=== PATIENT | male | born 1940 | race Caucasian/White ===

== ENCOUNTER 2017-06-01 10:37 | Outpatient (CLI) | payer MEDICARE, OTHER ==
[2017-06-01] VITALS (10 sets, daily range): BP systolic 122–147; BP diastolic 81–98
[~2017-06-01] VITALS: Ht 188 cm; Wt 100.7 kg
[2017-06-01] MEDS ORDERED: CATHETER FLUSH 10 ML SYR IV PRN (11:15)
[2017-06-01] MEDS ORDERED: meTOprolol 5 MG/5 ML (LOPRESSOR) VIAL ONE (13:09)
[2017-06-01] MEDS ORDERED: meTOprolol 5 MG/5 ML (LOPRESSOR) VIAL IV ONE ×2 (14:30→18:30)
[2017-06-01] MEDS ORDERED: NS IV 1000 ML 1,000 ML ONE (14:31)
[2017-06-01] MEDS ORDERED: HEParin (CATH LAB) 2,000 ML IV ONE (14:31)
[2017-06-01] MEDS ORDERED: NS IV 1000 ML 1,000 ML IV SCH ×2 (14:48→16:05)
--- NOTE | 2017-06-01 15:00 | Cardiac Procedure Note-CS/ASA ---
Pre-Procedure Note Pre-Op Procedure Note H&P Reviewed The H&P was reviewed, patient examined and no changes noted. Date H&P Reviewed: Jun 01, 2017 Time H&P Reviewed: 14:59 Conscious Sedation Pre-Proced Time Reviewed: 14:59 ASA Class: 3 Airway Mallampati Classification: ([place] appropriate class) I. II. III, IV Lungs Heart ASA score ASA 1: a normal healthy patient ASA 2: a patient with a mild systemic disease (mid diabetes, controlled hypertension, obesity x ASA 3: a patient with a severe systemic disease that limits activity (angina , COPD, prior Myocardial infarction) ASA 4: a patient with an incapacitating disease that is a constant threat to life (CHF, renal failure) ASA 5: a moribund patient not expected to survive 24 hrs. (ruptured aneurysm) ASA 6: a declared brain patient whose organs are being harvested. For emergent operations, add the letter E after the classification Grade 3 Sedation Plan: Analgesia, Amnesia, Plan communicated to team members, Discussed options with patient/fam, Discussed risks with patient/fam Note The patient is an appropriate candidate to undergo the planned procedure, sedation, and anesthesia. The patient immediately re-assessed prior to indication. ENZO SANDHU MD Jun 01, 2017 15:00
[2017-06-01 15:01] LABS: RED BLOOD COUNT 5.17 10^6/uL (4.35-5.85); RED CELL DISTRIBUTION WIDTH 14.1 % (10.0-14.5); WHITE BLOOD COUNT 8.3 10^3/uL (4.3-11.0)
--- NOTE | 2017-06-01 15:08 | Diagnostic Imaging Report ---
Portable upright radiograph of the chest. INDICATION: Abnormal stress test. FINDINGS: The lungs are clear. The heart size is at the upper limits of normal. No effusion or pneumothorax. Mediastinum and beni appear unremarkable. IMPRESSION: Slightly prominent cardiac size. Dictated by: Dictated on workstation # [id number]
[2017-06-01] MEDS ORDERED: METO-387 PO (15:14)
[2017-06-01] MEDS ORDERED: PRED5DRO17 OS (15:14)
[2017-06-01] MEDS ORDERED: OFLO5DRO3 OS (15:14)
[2017-06-01 15:16] LABS: ALBUMIN 3.9 GM/DL (3.2-4.5); BILIRUBIN,TOTAL 0.9 MG/DL (0.1-1.0); CALCIUM 9.4 MG/DL (8.5-10.1); CREATININE SERUM 1.28 MG/DL (0.60-1.30)
[2017-06-01] MEDS ORDERED: CETI10TA20 PO (15:16)
[2017-06-01] MEDS ORDERED: BETA1TAB15 PO (15:16)
[2017-06-01] MEDS ORDERED: OMG1KC PO (15:16)
[2017-06-01] MEDS ORDERED: MULT-35 PO (15:16)
[2017-06-01] MEDS ORDERED: MIDAZOLAM 5 MG/5 ML (VERSED) VIAL ONE (15:25)
[2017-06-01] MEDS ORDERED: fentaNYL INJECTION 100 MCG/2 ML AMP ONE (15:25)
[2017-06-01 16:07] LABS: PROTHROMBIN TIME PATIENT 13.1 SEC (12.2-14.7)
--- NOTE | 2017-06-01 16:07 | Discharge Inst-Post CATH ---
Discharge Inst-CATH Post Cardiac Cath D/C Inst Follow Up/Plan Appointment with Dr. Mar's office in 2-4 weeks CARDIAC CATH DISCHARGE INSTRUCTIONS *Hold Metformin for 48 hours post heart cath. ACTIVITY * Go Home directly and rest. * Limit activity of the leg (or wrist if it was used) for 7 days including aerobics, swimming, jogging, bicycling, etc. * Restrict stair-climbing for 7 days if possible, if not, climb up with your non -cath leg, then bring together on the same step. * Avoid lifting, pushing, pulling or excessive movement of the affected extremity for 7 days. * Customary sexual activity may be resumed after 2 days-use caution not to use a position that strains or causes pain to the affected extremity. * No driving for 24 hours. * NO SMOKING. * Avoid straining for bowel movements for 7 days. * Gentle walking on level ground is allowed. * Returning to work will depend on the type of procedure and the results. Your doctor will discuss this with you. CALL YOUR DOCTOR FOR ANY OF THE FOLLOWING: *If bleeding from the puncture site occurs- Apply gentle pressure to site with clean cloth and call your doctor or EMS. * If a knot or lump forms under the skin, increases in size, or causes pain. * If bruising appears to be worsening or moving further down your leg instead of disappearing. * Temperature above 101 F. CARE OF YOUR GROIN INCISION; * Bruising or purple discoloration of the skin near the puncture site is common. * You may shower only, no bathtub bathing for 5 days. Be careful to avoid slipping as your leg may feel stiff. * If a closure device was used on your femoral artery, please see the attached guide regarding care of the device and your leg. * REMOVE the dressing from your groin the next day after your procedure in the shower. CARE OF YOUR WRIST INCISION; * Bruising or purple discoloration of the skin near the puncture site is common. * You may shower. * DO NOT submerge wrist. * Remove dressing in 24 hours. ENZO MAR MD Jun 01, 2017 16:07
--- NOTE | 2017-06-01 16:12 | Cardiac Cath Report ---
Cardiac Cath Report Physician (s)/Vice President Of Recruiting (s) Physician ENZO SANDHU MD Pre-Procedure Diagnosis Pre-Procedure Diagnosis: coronary artery disease Post-Procedure Note Procedure Start Date: Jun 01, 2017 Procedure Start Time: 16:08 Name of Procedure: left heart catheterization Aortic arch angiogram Findings/Procedure Note PROCEDURE NOTE: After explaining the procedure to the patient, all pros and cons were explained, all questions were answered. The patient signed the consent and then she was placed on the cardiac catheterization laboratory. The patient was placed on the cardiac catheterization laboratory. Groin was prepped SL fashion local anesthesia was used. Sheath placed in the artery. James right and left catheter were used to access the coronary system. Pigtail was used to access the left ventricular cavity. Left ventriculogram was not done Aortic arch angiogram was done At the end of the procedure the sheath was removed. Closure device was used FINDINGS: Hemodynamics LV 128/16, end-diastolic pressure 16 Aorta 125/73 mean of 92 ANATOMY: Left Main is free of obstructive disease Left Anterior Descending is slightly tortuous with mild disease distally Left Circumflex is free of obstructive disease Right Coronory Artery is tortuous artery with slow flow due to small vessel disease but overall nonobstructive disease LV Gram was not done, pressure was measured Aorta aortic arch evaluation showed slightly prominent aortic arch, no dissection or aneurysm, origin of the great neck vessel is normal CONCLUSION: 1. Tortuous right coronary system with slow flow due to small vessel disease, nonobstructive disease 2. Mild disease in the LAD, nonobstructive disease 3. Slightly prominent aortic arch, no dissection or aneurysm, normal great neck vessels 4. Normal left ventricular end-diastolic pressure DISCUSSION AND RECOMMENDATION: mild coronary artery disease, medical therapy is recommended no intervention is warranted. Patient has multiple PVCs, intermittent wide complex rhythm, continue with beta henrik and increase the dose as tolerated Laboratory Tests Test 06/01/17 14:48 Range/Units White Blood Count 8.3 4.3-11.0 10^3/uL Red Blood Count 5.17 4.35-5.85 10^6/uL Hemoglobin 15.1 13.3-17.7 G/DL Hematocrit 45 40-54 % Mean Corpuscular Volume 88 80-99 FL Mean Corpuscular Hemoglobin 29 25-34 PG Mean Corpuscular Hemoglobin Concent 33 32-36 G/DL Red Cell Distribution Width 14.1 10.0-14.5 % Platelet Count 190 130-400 10^3/uL Mean Platelet Volume 10.0 7.4-10.4 FL Sodium Level 140 135-145 MMOL/L Potassium Level 4.0 3.6-5.0 MMOL/L Chloride Level 108 H 98-107 MMOL/L Carbon Dioxide Level 26 21-32 MMOL/L Anion Gap 6 5-14 MMOL/L Blood Urea Nitrogen 20 H 7-18 MG/DL Creatinine 1.28 0.60-1.30 MG/DL Estimat Glomerular Filtration Rate 55 BUN/Creatinine Ratio 16 Glucose Level 93 70-105 MG/DL Calcium Level 9.4 8.5-10.1 MG/DL Total Bilirubin 0.9 0.1-1.0 MG/DL Aspartate Amino Transf (AST/SGOT) 26 5-34 U/L Alanine Aminotransferase (ALT/SGPT) 28 0-55 U/L Alkaline Phosphatase 124 40-136 U/L Total Protein 7.0 6.4-8.2 GM/DL Albumin 3.9 3.2-4.5 GM/DL Anesthesia Type: Conscious Sedation Estimated blood loss (mL): 5 ml Contrast Amount: 51 ml Total Radiation Dose: 659 mGy Post-Procedure Diagnosis Post-operative diagnosis: Coronary artery disease Hypertension Prominent aortic arch Frequent premature ventricular contractions ENZO SANDHU MD Jun 01, 2017 16:11
[2017-06-01] MEDS ORDERED: PATIENT MAY USE OWN MEDS, ALL PO SCH (16:15)
[2017-06-01 16:18] LABS: CHOLESTEROL 191 MG/DL (< 200); DIRECT LDL 124 MG/DL (1-129); TRIGLYCERIDES 85 MG/DL (<150); VLDL CHOLESTEROL 17 MG/DL (5-40)
--- NOTE | 2017-06-02 09:14 | STRESS TEST ---
DATE OF SERVICE: 06/01/2017 EXERCISE MYOVIEW STRESS TEST REPORT SUMMARY: Baseline heart rate is 76. Baseline blood pressure is 154/76. Baseline EKG is sinus rhythm with no ischemic changes. In summary, the patient was injected with 10.99 mCi of technetium-99 Myoview and the resting images were obtained. Then, the patient started exercising with a baseline heart rate, blood pressure and EKG mentioned above. The patient was able to exercise for a total of 7 minutes 15 seconds on standard Melchor protocol. With peak exercise level, blood pressure was 181/89. EKG was showing minimal nondiagnostic changes. During recovery, the patient developed wide complex tachycardia with a rate of 113. Then, he had frequent PVCs and ventricular couplets, returned later in recovery to sinus rhythm with intermittent wide complex rhythm. At the end of the test, the patient was asymptomatic. The resting and stress images were reviewed and compared due to the short axis, horizontal long axis, and vertical long axis views. Review of the images showed reversible ischemia involving the mid to apical inferior wall, inferolateral wall and anterolateral wall. SSS is 10, SDS 10, TID value 1.22. On the gated images, the left ventricle appeared to be prominent with diffuse left ventricular hypokinesia, more pronounced at the inferior wall, inferolateral wall, anterolateral wall calculated ejection fraction of 46%. CONCLUSION: 1. Fair exercise tolerance, a total of 7 minutes 15 seconds on standard Melchor protocol, total of 8.7 METS achieving 91% of maximum expected heart rate. 2. Hypertensive response to exercise, returned to baseline during recovery. 3. Frequent PVCs, ventricular couplets and multiple episodes of wide complex rhythm with a heart rate of 110 to 115. 4. Transient ischemic dilatation with TID value 1.22. 5. Reversible ischemia involving the mid to apical inferior wall, inferolateral wall and anterolateral wall. 6. Normal left ventricular size with mild diffuse left ventricular hypokinesia, more pronounced at the inferior wall, inferolateral wall and anterolateral wall, calculated ejection fraction of 46%. Job ID: [id number] DocumentID: [id number] Dictated Date: 06/01/2017 15:20:30 Superintendent Maintenance Date: 06/01/2017 19:24:02 Dictated By: ENZO SANDHU MD
== END 2017-06-01 21:05 | disposition home or self-care (01) ==
LOC: CARD 10:37 → ICU 16:15 → CARD 21:05
PROVIDERS: ATTEND Internal Medicine Cardiovascular Disease
DX: R07.9 Chest pain, unspecified; R00.2 Palpitations
CPT/HCPCS: 36221; 36415; 71010; 78452; 80053; 80061; 85027; 85610; 85730; 87081; 93017; 93306; 93458

== ENCOUNTER 2019-03-03 17:55 | Emergency (ER) | payer MEDICARE ==
[~2019-03-03] VITALS: Ht 188 cm; Wt 100.7 kg
[~2019-03-03 17:55] MED LIST: BETA1TAB15 PO; CETI10TA20 PO; METO-387 PO; MULT-35 PO; OFLO5DRO3 OS; OMG1KC PO; PRED5DRO17 OS
[2019-03-03 18:29] LABS: BASOPHILS % (AUTO) 1 % (0-10); EOSINOPHILS % (AUTO) 4 % (0-10); HEMATOCRIT 47 % (40-54); HEMOGLOBIN 15.4 G/DL (13.3-17.7); LYMPHOCYTES % (AUTO) 24 % (12-44); MEAN CORPUSCULAR HEMOGLOBIN 30 PG (25-34); MEAN CORPUSCULAR HGB CONC 33 G/DL (32-36); MEAN CORPUSCULAR VOLUME 90 FL (80-99); MEAN PLATELET VOLUME 10.4 FL (7.4-10.4); MONOCYTES % (AUTO) 8 % (0-12); NEUTROPHILS # (AUTO) 5.2 X 10^3 (1.8-7.8); NEUTROPHILS % (AUTO) 63 % (42-75); PLATELET COUNT 221 10^3/uL (130-400); RED CELL DISTRIBUTION WIDTH 13.8 % (10.0-14.5); WHITE BLOOD COUNT 8.2 10^3/uL (4.3-11.0)
[2019-03-03 18:30] LABS: BASOPHILS # (AUTO) 0.1 10^3/uL (0.0-0.1); EOSINOPHILS # (AUTO) 0.3 10^3/uL (0.0-0.3); MONOCYTES # (AUTO) 0.7 X 10^3 (0.0-1.0)
[2019-03-03 18:36] LABS: PROTHROMBIN TIME PATIENT 13.5 SEC (12.2-14.7)
[2019-03-03 18:45] LABS: ALBUMIN 4.4 GM/DL (3.2-4.5); BILIRUBIN,TOTAL 0.7 MG/DL (0.1-1.0); CALCIUM 9.7 MG/DL (8.5-10.1); CREATININE SERUM 1.51 MG/DL (0.60-1.30); POTASSIUM 4.4 MMOL/L (3.6-5.0); TOTAL PROTEIN 7.3 GM/DL (6.4-8.2)
--- NOTE | 2019-03-03 19:23 | ED Chest Pain ---
General Chief Complaint: Chest Pain Stated Complaint: CHEST PAIN,LOW BP,JAW PAIN Nursing Triage Note: Patient c/o chest pain with bilateral jaw pain. Patient reports he was lifting heavy boxes in the heat when his heart started racing and the chest pain started. Patient reports that he had a report recorded a pulse rate of 191. Nursing Sepsis Screen: No Definite Risk Source: patient, police Exam Limitations: no limitations History of Present Illness Date Seen by Provider: Mar 03, 2019 Time Seen by Provider: 15:20 Initial Comments Patient is a 78-year-old male with history of paroxysmal atrial fibrillation who presents with palpitations and heart rate in the 190s and bilateral jaw pain. Symptoms lasted approximately 30-40 minutes and occurred while the patient was lifting heavy boxes. Heart rate is controlled on ED arrival the patient is normal sinus rhythm with a ventricular rate 90s. Pain is resolved. Patient denie s shortness of breath nausea sweats during exertion earlier in the day. States he has had 2-3 episodes of A. fib over the past several months but are usually related to heavy lifting and bending down. Reports an outpatient heart catheterization 2 years ago which did not show evidence of macrovascular disease. Patient follows with Dr. Mar and is prescribed metoprolol. However, patient took himself off metoprolol 3 months ago due to poor tolerance of side effects. Patient reports fatigue and loss of motivation. Patient denies past anginal pain with exertion other than times when he is in A. fib. He is not on anticoagulation medication but does take a daily baby aspirin. 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 NTG SL SPACE SYSTEMS OPERATIONS SUPERINTENDENT: No Allergies and Home Medications Allergies Coded Allergies: No Known Drug Allergies (Unverified , 06/01/17) Home Medications Cetirizine HCl 10 Mg Tablet, 10 MG PO DAILY, (Reported) Metoprolol Succinate 25 Mg Tab.er.24h, 25 MG PO DAILY, (Reported) Multivitamin 1 Each Tablet, 1 TAB PO DAILY, (Reported) Ofloxacin 5 Ml Drops, 1 DROP OS QID, (Reported) Richardson 3 Polyunsat Fatty Acids 1,000 Mg Cap, 1,000 MG PO DAILY, (Reported) Prednisolone Acetate 5 Ml Drops.susp, 1 DROP OS QID, (Reported) Vit A/Vit C/Vit E/Zinc/Copper 1 Each Tablet, 1 TAB PO DAILY, (Reported) Patient Home Medication List Home Medication List Reviewed: Yes Review of Systems Review of Systems Constitutional: no symptoms reported EENTM: No Symptoms Reported Respiratory: No Symptoms Reported Cardiovascular: See HPI Gastrointestinal: No Symptoms Reported Genitourinary: No Symptoms Reported Musculoskeletal: no symptoms reported Skin: no symptoms reported Psychiatric/Neurological: No Symptoms Reported Endocrine: No Symptoms Reported Hematologic/Lymphatic: No Symptoms Reported Past Lyfkgfd-Ffyece-Wdanoz Hx Past Med/Social Hx: Reviewed Nursing Past Med/Soc Hx Patient Social History Recent Foreign Travel: No Contact w/Someone Who Travel: No Recent Infectious Disease Expo: No Physical Exam Vital Signs Vital Signs - First Documented Capillary Refill : Less Than 3 Seconds Height, Weight, BMI Height: 6'2.00" Weight: 222lbs. 0.0oz. 100.402160be; 27.7 BMI Method:Stated General Appearance: No Apparent Distress, WD/WN HEENT: PERRL/EOMI, TMs Normal Neck: Normal Inspection, Non Tender, Supple Respiratory: Chest Non Tender, Lungs Clear Cardiovascular: Regular Rate, Rhythm, Extra Beats Gastrointestinal: Normal Bowel Sounds Extremity: Normal Capillary Refill, Normal Inspection, Normal Range of Motion Neurologic/Psychiatric: Alert, Normal Mood/Affect, other sales support worker II-XII Norm as Tested Skin: Normal Color, Warm/Dry Focused Exam Sepsis Stage: Ruled Out Progress/Results/Core Measures Results/Orders Lab Results Laboratory Tests Test 03/03/19 18:00 03/03/19 20:00 Range/Units White Blood Count 8.2 4.3-11.0 10^3/uL Red Blood Count 5.20 4.35-5.85 10^6/uL Hemoglobin 15.4 13.3-17.7 G/DL Hematocrit 47 40-54 % Mean Corpuscular Volume 90 80-99 FL Mean Corpuscular Hemoglobin 30 25-34 PG Mean Corpuscular Hemoglobin Concent 33 32-36 G/DL Red Cell Distribution Width 13.8 10.0-14.5 % Platelet Count 221 130-400 10^3/uL Mean Platelet Volume 10.4 7.4-10.4 FL Neutrophils (%) (Auto) 63 42-75 % Lymphocytes (%) (Auto) 24 12-44 % Monocytes (%) (Auto) 8 0-12 % Eosinophils (%) (Auto) 4 0-10 % Basophils (%) (Auto) 1 0-10 % Neutrophils # (Auto) 5.2 1.8-7.8 X 10^3 Lymphocytes # (Auto) 2.0 1.0-4.0 X 10^3 Monocytes # (Auto) 0.7 0.0-1.0 X 10^3 Eosinophils # (Auto) 0.3 0.0-0.3 10^3/uL Basophils # (Auto) 0.1 0.0-0.1 10^3/uL Prothrombin Time 13.5 12.2-14.7 SEC INR Comment 1.0 0.8-1.4 Sodium Level 145 135-145 MMOL/L Potassium Level 4.4 3.6-5.0 MMOL/L Chloride Level 107 98-107 MMOL/L Carbon Dioxide Level 23 21-32 MMOL/L Anion Gap 15 H 5-14 MMOL/L Blood Urea Nitrogen 26 H 7-18 MG/DL Creatinine 1.51 H 0.60-1.30 MG/DL Estimat Glomerular Filtration Rate 45 BUN/Creatinine Ratio 17 Glucose Level 112 H 70-105 MG/DL Calcium Level 9.7 8.5-10.1 MG/DL Corrected Calcium 9.4 8.5-10.1 MG/DL Total Bilirubin 0.7 0.1-1.0 MG/DL Aspartate Amino Transf (AST/SGOT) 31 5-34 U/L Alanine Aminotransferase (ALT/SGPT) 30 0-55 U/L Alkaline Phosphatase 135 40-136 U/L Troponin T 66 H 57 H <=15 NG/L Total Protein 7.3 6.4-8.2 GM/DL Albumin 4.4 3.2-4.5 GM/DL My Orders Orders - MNYOR BARAJAS DO Cbc With Automated Diff (03/03/19 18:21) Comprehensive Metabolic Panel (03/03/19 18:21) Troponin T (03/03/19 18:21) Ekg Tracing (03/03/19 18:21) Protime With Inr (03/03/19 18:21) Chest 1 View Ap/Pa Only (03/03/19 ) Troponin T (03/03/19 19:42) Vital Signs/I&O 03/03/19 03/03/19 18:00 18:00 Temp 98.6 Pulse 99 Resp 16 B/P (MAP) 118/75 (89) Pulse Ox 97 O2 Delivery Nasal Cannula Room Air Blood Pressure Mean: 89 Progress Progress Note : Progress Note Patient normal sinus rhythm and symptom free on ED arrival. Trop is elevated likely due to supply demand mismatch versus ACS. Aspirin given, 2 hour repeat trop ordered. Will contact library specialist. Departure Communication (Admissions) Patient asymptomatic while in the emergency department and remains in sinus rhythm. Patient did take a single dose of metoprolol prior to the arrival. Initial troponin was elevated likely secondary to supply demand mismatch versus underlying coronary syndrome. Repeat 2 hour troponin was obtained and trends downwards. I did offer the patient admission to another facility for cardiology evaluation which patient declined. Attempts were made to contact the on-call library specialist were unsuccessful. Patient requests discharge from this ER plans to follow up with Dr. Mar office next week. He is instructed to continue his m etoprolol and return to the emergency department should his symptoms return. Patient verbalizes understanding crewman with discharge instructions prior to departure Impression Primary Impression: Palpitations Additional Impressions: Atrial fibrillation with RVR Elevated troponin Dehydration Disposition: 01 HOME, SELF-CARE Condition: Improved Departure-Patient Inst. Referrals: RAPHAEL NOWAK DO (PCP/Family) Primary Care Physician Patient Instructions: Atrial Fibrillation (DC), Angina (DC), Palpitations (DC), Dehydration, Adult (DC) Add. Discharge Instructions: Please increase fluids, resume metoprolol and avoid physical exertion and heavy lifting until you follow up with your library specialist in the office next week. In the meantime if you, develop new or worsening symptoms, return to the ED. All discharge instructions reviewed with patient and/or family. Voiced understanding. MYNOR BARAJAS DO Mar 03, 2019 19:23
--- NOTE | 2019-03-03 19:46 | Diagnostic Imaging Report ---
Patient History: CHEST PAIN, LOW B/P. Atrial fibrillation Technique: Single frontal view of the chest Comparison: 06/01/2017 FINDINGS: The lung volumes are normal. No focal consolidation is seen. No large pleural effusion or pneumothorax is seen. The cardiomediastinal silhouette is normal in size and contour. No acute osseous abnormality is seen. IMPRESSION: No acute pulmonary abnormality seen. Dictated by: Dictated on workstation # [id number]
[2019-03-03 21:43] VITALS: BP 109/71
== END 2019-03-03 21:43 | disposition home or self-care (01) ==
LOC: EDUNIT# 17:55 → ER FS 17:57
DX: I48.0 Paroxysmal atrial fibrillation (principal); E86.0 Dehydration; R74.8 Abnormal levels of other serum enzymes
CPT/HCPCS: 36415; 71045; 80053; 84484; 85025; 85610; 93005

== ENCOUNTER → 2019-08-07 | Outpatient (CLI) | payer MEDICARE ==
--- NOTE | 2019-08-07 13:22 | Diagnostic Imaging Report ---
EXAMINATION: Left knee at 11:09 a.m. INDICATION: Knee pain. FINDINGS: Three views were obtained. There are no prior studies available for comparison. There is no fracture, dislocation, or acute bony abnormality evident. There is fairly severe narrowing of the medial compartment of the knee joint and at least moderate narrowing of the patellofemoral space. There is only mild narrowing of the lateral compartment of the knee joint. The soft tissues are unremarkable. IMPRESSION: 1. There is no evidence for an acute bony abnormality. 2. 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 Dictated by: Dictated on workstation # [id number]
== END ==
LOC: RAD FS 10:53
PROVIDERS: ATTEND Nurse Practitioner
DX: M17.12 Unilateral primary osteoarthritis, left knee (principal)
CPT/HCPCS: 73562

== ENCOUNTER 2020-03-24 07:40 | Outpatient (RCR) | payer MEDICARE ==
[~2020-03-24] VITALS: Ht 98 cm; Wt 188.0 kg
[~2020-03-24 07:40] MED LIST changes: -CETI10TA20 PO; +CETI10TA49 PO; -METO-387 PO; +MTP25TSR PO
[2020-03-24] MEDS ORDERED: CATHETER FLUSH 10 ML SYR IV PRN (08:15)
[2020-03-24] MEDS ORDERED: REGADENOSON 0.4 MG/5 ML SYR (LEXISCAN) IV ONE ×2 (08:30→08:43)
[2020-03-24 09:14] VITALS: BP 151/94
--- NOTE | 2020-03-25 08:59 | Cardiology Stress Test Report ---
Stress Test Report Date of Procedure/Referring: Date of Procedure: Mar 24, 2020 PCP Enzo Mar MD Admitting Physician Loc Sierra DO Indications: Coronary artery disease Baseline Heart Rate: 69 Baseline Blood Pressure: Blood Pressure Systolic: 151 Blood Pressure Diastolic: 94 Baseline Vitals Vital Signs Date Time Temp Pulse Resp B/P (MAP) Pulse Ox O2 Delivery O2 Flow Rate FiO2 03/24/20 09:14 76 151/94 (113) Baseline EKG: Baseline EKG: normal sinus rhythm Summary After explaining the procedure to the patient, he signed a consent and then brought to the stress nuclear laboratory. Patient received 0.4 mg Lexiscan for stress test, ECG, heart rate and blood pressure were monitored continuously. Resting and stress dose of radio tracer were injected, imaging was acquired and reviewed in short axis, horizontal long axis and vertical long axis views. TID: 0.99 SSS: 5 SDS: 3 EF: 45 1. Patient tolerated Lexiscan well 2. Diaphragmatic attenuation with mild decrease uptake involving the mid to apical inferior wall and inferolateral wall with mild reversibility 3. Normal left ventricular size, mild hypokinesia at the inferior wall, EF 45 percent ENZO MAR MD Mar 25, 2020 08:59
== END 2020-06-22 | disposition home or self-care (01) ==
LOC: CARD 07:40
PROVIDERS: ATTEND Internal Medicine Cardiovascular Disease
DX: I25.10 Atherosclerotic heart disease of native coronary artery without angina pectoris (principal); I51.89 Other ill-defined heart diseases; R00.2 Palpitations; R94.39 Abnormal result of other cardiovascular function study; Z87.891 Personal history of nicotine dependence
CPT/HCPCS: 78452; 93017; 93225; 93226; A9502